=== PATIENT | female | born 1935 ===

== ENCOUNTER 2017-08-20 16:03 | Observation (INO) | payer MEDICARE, MEDICAID ==
[2017-08-20 16:04] VITALS: BMI 27.1
[2017-08-20] MEDS ORDERED: Sodium Chloride 0.9% 1,000 ML IV STA (17:00)
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
--- NOTE | 2017-08-20 17:21 | RAD ---
HISTORY: Cough COMPARISON: Comparison chest 08/26/2015. TECHNIQUE: Chest PA and lateral FINDINGS: Left IJ MediPort with tip in the brachiocephalic/SVC junction. Additionally, there are metallic clips again seen in the right axillary region. Clinical correlation with surgical history recommended. LUNGS: Patchy bilateral mid to lower lobe infiltrate changes with what may represent some concomitant atelectasis both lung bases. . Questionable minor fibrosis/scarring left lung apex. PLEURA: No apparent pneumothorax. Posterior sulci are poorly delineated which could be due to atelectasis CARDIOVASCULAR: Normal. OSSEOUS STRUCTURES: Minor multilevel degenerative spondylosis of the thoracic spine VISUALIZED UPPER ABDOMEN: Normal. OTHER FINDINGS: None. IMPRESSION: Patchy bilateral mid to lower lobe infiltrate changes with what may represent some concomitant atelectasis both lung bases. . Questionable minor fibrosis/scarring left lung apex. Consider followup CT scan chest for further evaluation.
[2017-08-20 17:38] LABS: BASO # 0.1 K/uL (0.0-0.2); BASO % 0.6 % (0.0-2.0); EOS % 0.1 % (0.0-4.0); HEMOGLOBIN 13.9 g/dL (12.0-16.0); LYMPH # 0.6 K/uL (1.0-4.3); LYMPH % 3.9 % (20.0-40.0); MEAN CELL VOLUME 86.6 fl (81.0-99.0); MEAN CORPUSCULAR HEMOGLOBIN 28.1 pg (27.0-31.0); MEAN CORPUSCULAR HGB CONC 32.4 g/dL (33.0-37.0); MEAN PLATELET VOLUME 8.1 fl (7.2-11.7); MONO # 0.7 K/uL (0.0-0.8); MONO % 4.3 % (0.0-10.0); NEUT # 14.5 K/uL (1.8-7.0); NEUT % 91.1 % (50.0-75.0); NRBC % 0.1 % (0.0-0.0); PLATELET COUNT 245 K/uL (130-400); RBC 4.96 Mil/uL (3.80-5.20); RED CELL DISTRIBUTION WIDTH 18.8 % (11.5-14.5); WHITE BLOOD COUNT 15.9 K/uL (4.8-10.8)
[2017-08-20 17:42] LABS: ALB/GLOB RATIO 1.2 (1.0-2.1); ALBUMIN 4.1 g/dL (3.5-5.0); ALT/SGPT 31 U/L (9-52); AST/SGOT 53 U/L (14-36); BLOOD UREA NITROGEN 12 mg/dl (7-17); CALCIUM 10.1 mg/dL (8.4-10.2); GFR AFRICAN-AMERICAN > 60; GFR NON-AFRICAN AMERICAN > 60; LIPASE 40 U/L (23-300)
[2017-08-20 18:08] LABS: INR 1.1 (0.9-1.2); PARTIAL THROMBOPLASTIN TIME 31.5 Seconds (25.6-37.1); PROTHROMBIN TIME 12.1 Seconds (9.8-13.1)
[2017-08-20] MEDS ORDERED: Iohexol 300 100 ML IJ ONE (18:13)
[2017-08-20] MEDS ORDERED: Sodium Chloride 0.9% 50 ML IV ONE (18:13)
[2017-08-20 18:56] LABS: LYMPHOCYTE 6 % (20-50); MONOCYTE 3 % (0-10); NEUTROPHIL 89 % (42-75); REACTIVE LYMPHOCYTES 2 % (0-0); TOTAL CELLS COUNTED 100
[2017-08-20 19:00] LABS: PLATELET ESTIMATE NORMAL (NORMAL)
[2017-08-20 19:01] LABS: ANISOCYTOSIS SLIGHT
[2017-08-20 19:05] LABS: OVALOCYTES SLIGHT
[2017-08-20 19:06] LABS: SCHISTOCYTES SLIGHT
--- NOTE | 2017-08-20 19:52 | CT ---
EXAM: CT Abdomen and Pelvis With Intravenous Contrast EXAM DATE/TIME: 08/20/2017 4:59 PM\par CLINICAL HISTORY: 81 years old, female; Pain; Abdominal pain; Generalized; Prior surgery; Surgery date: 6+ months; Surgery type: Gb removed. Append. Removed; Patient HX: Ca. Breast in 2009 with mets to lung, spine; Additional info: Gen abd pain, constipation. Sent phy. Doc. TECHNIQUE: Axial computed tomography images of the abdomen and pelvis with intravenous contrast. All CT scans at this facility use one or more dose reduction techniques, viz.: automated exposure control; ma/kV adjustment per patient size (including targeted exams where dose is matched to indication; i.e. head); or iterative reconstruction technique. Coronal and sagittal reformatted images were created and reviewed. CONTRAST: 90 mL of [id number] administered intravenously. COMPARISON: There are no prior studies for comparison. FINDINGS: Lower thorax: There is a right breast prosthesis Heart size is at the upper limits of normal. There is no pericardial effusion. There is a hiatal hernia. The there is a small to moderate right effusion. There is no left effusion. There are multiple bilateral pulmonary nodules. Medial opacity at the left base suggest nodules in infiltrate. There is a hiatal hernia. ABDOMEN: Liver: There are calcifications in the left lobe of the liver. There are multiple low attenuation lesion suspicious for metastasis greatest in the right lobe of the liver. Gallbladder and bile ducts: Gallbladder is absent. Common duct is dilated 1.7 cm in maximal diameter. There is intrahepatic biliary ductal dilatation Pancreas: Pancreas is mildly atrophic. Pancreatic duct is dilated. There are small coarse calcifications in the body of the pancreas. Spleen: unremarkable Adrenals: There is nodular thickening of the right adrenal. There is a small left adrenal nodule. Kidneys and ureters: There are right renal cysts. There are low attenuation left renal lesions too small to characterize.There is no pelvocaliectasis or ureterectasis. Stomach and bowel: Stomach is incompletely distended which accentuates the gastric wall. Rotation is normal. Duodenum is mildly distended with fluid and air. Proximal jejunum is mildly distended with fluid and air. There is no small bowel obstruction. There is fluid throughout the small bowel. Terminal ileum is distended with fluid. not There is no pericecal inflammation. Right is mildly dilated with air-fluid levels. Distention decreases distally. There is descending colon wall thickening and inflammation. There is sigmoid diverticulosis. Appendix: Surgically absent PELVIS: Bladder: unremarkable Reproductive: Uterus and left adnexal structures are unremarkable. There is a small calcification in the right adnexa. ABDOMEN and PELVIS: Intraperitoneal space: There is no free air or free fluid. Bones/joints: There are old rib fractures. There are degenerative changes in the osseus structures. Abnormal architecture T12 suggest hemangioma. There is an ill-defined lesion no free suggestive of metastasis. Soft tissues: unremarkable Vasculature: There are vascular calcifications. Lymph nodes: There is shotty para-aortic adenopathy in the upper retroperitoneum. There is peripancreatic adenopathy. IMPRESSION: Right breast prosthesis; multiple bilateral pulmonary nodules suspicious for metastases; hepatic lesions suspicious for metastases; cholecystectomy; dilated intra-and extrahepatic biliary ducts and dilated pancreatic duct, lesion at the level of the ampulla cannot be excluded; pancreatic atrophy with coarse calcifications; descending colon colitis, ileus, no obstruction; adenopathy Additional nonemergent findings as described above.
--- NOTE | 2017-08-20 20:27 | CT ---
EXAM: CT Chest Without Intravenous Contrast EXAM DATE/TIME: 08/20/2017 6:33 PM CLINICAL HISTORY: 81 years old, female; Signs and symptoms and abnormal findings; Other: Abnormal cxr; Cough; Symptoms not specified; Prior surgery; Surgery date: 6+ months; Surgery type: Right breast ca. ; Patient HX: Rt breast ca. With mets TECHNIQUE: Axial computed tomography images of the chest without intravenous contrast. All CT scans at this facility use one or more dose reduction techniques, viz.: automated exposure control; ma/kV adjustment per patient size (including targeted exams where dose is matched to indication; i.e. head); or iterative reconstruction technique. Coronal and sagittal reformatted images were created and reviewed. COMPARISON: CR - CHEST PORTABLE 2015-08-26 12:59 FINDINGS: Lungs and pleural spaces: Trachea and main bronchi are patent. There are multiple bilateral pulmonary nodules/masses too numerous to count. There is a small moderate right effusion. There is no left effusion. There is mild diffuse increase in interstitial markings greatest in the lower lobes right greater than left. Heart and vasculature: The heart is mildly enlarged. There is fluid in pericardial recesses. There are coronary artery calcifications.Aorta and main pulmonary artery are normal in caliber.There are vascular calcifications. Mediastinum: Esophagus is unremarkable. There is a hiatal hernia. There is mediastinal and hilar adenopathy. There is an enlarged left pericardial node. Thyroid: Thyroid is heterogeneous with nodules Bones/joints: There are multiple old rib fractures of the varying ages. There is a lytic lesion in the sternum. There is expansile blastic lesion in the left C7 lamina.There are degenerative changes in the osseus structures. There are lesion suggesting hemangiomas T6 and T12. Soft tissues: There are multiple clips in the right axilla. There is a right breast prosthesis. Upper abdomen: There are poorly defined lesions in the liver. Gallbladder is absent. There is intra-and extra attic biliary ductal dilatation. Pancreas is atrophic with dilated pancreatic duct. There are adrenal nodules. There is adenopathy in the upper abdomen and upper retroperitoneum. Tubes, lines and devices: There is a Port-A-Cath in the left chest wall. Catheter tip is in the low superior vena cava. IMPRESSION: Right breast prosthesis and clips in the right axilla consistent with history of breast cancer; multiple bilateral pulmonary nodules/masses too numerous to count consistent with metastatic disease; small right effusion; bony metastatic disease; dilated biliary and pancreatic ducts suggesting ampullary lesion/dysfunction; metastatic disease in liver Additional nonemergent findings as described above.
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
[2017-08-20 23:04] LABS: SQUAMOUS EPITHIAL < 1 /hpf (0-5); URINE BACTERIA RARE (<OCC); URINE BILIRUBIN NEGATIVE (NEGATIVE); URINE BLOOD NEGATIVE (NEGATIVE); URINE CLARITY CLEAR (Clear); URINE COLOR AMBER (YELLOW); URINE GLUCOSE (UA) NEG (Normal); URINE LEUKOCYTE ESTERASE TRACE Leu/uL (Negative); URINE NITRATE NEGATIVE (NEGATIVE); URINE PROTEIN 30 mg/dL (NEGATIVE)
[2017-08-20] MEDS ORDERED: Oxycodone/Acetaminophen 5/325 mg Tab PO PRN ×2 (23:45→23:46)
[2017-08-20] MEDS ORDERED: Ergocalciferol 50,000 Intl Units Cap PO SCH (23:45)
[2017-08-20] MEDS ORDERED: Sodium Chloride 0.9% 1,000 ML IV SCH (23:45)
[2017-08-21] MEDS ORDERED: Promethazine/Cod 6.25mg-10mg/5ml Syr UD PO PRN ×2 (00:25→00:30)
[2017-08-21] MEDS ORDERED: Ciprofloxacin 400mg/200ml D5W 400 MG/200 ML BAG IVPB SCH (04:30)
[2017-08-21] MEDS: metroNIDAZOLE 500mg/100ml NS 50 ML IVPB SCH ×2 (04:39→12:24)
[2017-08-21] MEDS ORDERED: Dextrose 50% SYRINGE Inj (50 ml) ONE (05:14)
[2017-08-21] MEDS ORDERED: Dextrose 50% SYRINGE Inj (50 ml) IVP ONE (05:15)
[2017-08-21] MEDS: Insulin Regular 100 units/ml SC SCH ×3 (06:32→16:32)
[2017-08-21 06:33] LABS: BASO % 0.4 % (0.0-2.0); EOS # 0.1 K/uL (0.0-0.7); EOS % 1.5 % (0.0-4.0); LYMPH # 0.8 K/uL (1.0-4.3); LYMPH % 11.3 % (20.0-40.0); MEAN CELL VOLUME 87.2 fl (81.0-99.0); MEAN CORPUSCULAR HEMOGLOBIN 28.2 pg (27.0-31.0); MEAN CORPUSCULAR HGB CONC 32.3 g/dL (33.0-37.0); MEAN PLATELET VOLUME 8.4 fl (7.2-11.7); MONO # 0.4 K/uL (0.0-0.8); MONO % 6.4 % (0.0-10.0); NEUT # 5.7 K/uL (1.8-7.0); NEUT % 80.4 % (50.0-75.0); NRBC % 0.1 % (0.0-0.0); RBC 3.91 Mil/uL (3.80-5.20); RED CELL DISTRIBUTION WIDTH 18.2 % (11.5-14.5); WHITE BLOOD COUNT 7.1 K/uL (4.8-10.8)
[2017-08-21 06:40] LABS: ALBUMIN 2.9 g/dL (3.5-5.0); ALT/SGPT 31 U/L (9-52); AST/SGOT 39 U/L (14-36); BLOOD UREA NITROGEN 9 mg/dl (7-17); CALCIUM 8.5 mg/dL (8.4-10.2); GFR AFRICAN-AMERICAN > 60; GFR NON-AFRICAN AMERICAN > 60
--- NOTE | 2017-08-21 08:47 | CARD ---
APPROVED REPORT EKG Measurement Heart [id number] <Conclusion> Sinus tachycardia T wave abnormality, consider inferior ischemia Abnormal ECG
[2017-08-21] MEDS ORDERED: Enoxaparin 40 mg Syringe SC SCH (09:00)
[2017-08-21] MEDS: Potassium CL 10 MEQ/50 ML 50 ML IVPB SCH ×2 (11:03→11:04)
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
[2017-08-21 13:52] LABS: BLOOD UREA NITROGEN 8 mg/dl (7-17); CALCIUM 8.9 mg/dL (8.4-10.2); GFR AFRICAN-AMERICAN > 60; GFR NON-AFRICAN AMERICAN > 60
--- NOTE | 2017-08-21 15:13 | CP.PCM.DIS ---
Provider - Provider Date of Admission: 08/20/17 20:59 Attending physician: Franki Norton Primary care physician: Dr Liang Consults: Oncology : Dr Sánchez GI : Dr Lopez Time Spent in preparation of Discharge (in minutes): 40 Diagnosis - Discharge Diagnosis (1) Abdominal pain Status: Acute (2) Colitis Status: Acute (3) Ileus Status: Acute (4) Metastatic breast cancer Status: Chronic Hospital Course - Lab Results Lab Results: Most Recent Lab Values WBC 7.1 K/uL (4.8-10.8) D 08/21/17 05:25 RBC 3.91 Mil/uL (3.80-5.20) 08/21/17 05:25 Hgb 11.0 g/dL (12.0-16.0) L D 08/21/17 05:25 Hct 34.1 % (34.0-47.0) 08/21/17 05:25 MCV 87.2 fl (81.0-99.0) 08/21/17 05:25 MCH 28.2 pg (27.0-31.0) 08/21/17 05:25 MCHC 32.3 g/dL (33.0-37.0) L 08/21/17 05:25 RDW 18.2 % (11.5-14.5) H 08/21/17 05:25 Plt Count 172 K/uL (130-400) 08/21/17 05:25 MPV 8.4 fl (7.2-11.7) 08/21/17 05:25 Neut % (Auto) 80.4 % (50.0-75.0) H 08/21/17 05:25 Lymph % (Auto) 11.3 % (20.0-40.0) L 08/21/17 05:25 [place] % (Auto) 6.4 % (0.0-10.0) 08/21/17 05:25 Eos % (Auto) 1.5 % (0.0-4.0) 08/21/17 05:25 Baso % (Auto) 0.4 % (0.0-2.0) 08/21/17 05:25 Neut # (Auto) 5.7 K/uL (1.8-7.0) 08/21/17 05:25 Lymph # (Auto) 0.8 K/uL (1.0-4.3) L 08/21/17 05:25 [place] # (Auto) 0.4 K/uL (0.0-0.8) 08/21/17 05:25 Eos # (Auto) 0.1 K/uL (0.0-0.7) 08/21/17 05:25 Baso # (Auto) 0.0 K/uL (0.0-0.2) 08/21/17 05:25 Neutrophils % (Manual) 89 % (42-75) H 08/20/17 17:28 Lymphocytes % (Manual) 6 % (20-50) L 08/20/17 17:28 Reactive Lymphs % 2 % (0-0) H 08/20/17 17:28 Monocytes % (Manual) 3 % (0-10) 08/20/17 17:28 Platelet Estimate Normal (NORMAL) 08/20/17 17:28 Anisocytosis (manual) Slight 08/20/17 17:28 Ovalocytes Slight 08/20/17 17:28 Schistocytes Slight 08/20/17 17:28 PT 12.1 Seconds (9.8-13.1) 08/20/17 17:28 INR 1.1 (0.9-1.2) 08/20/17 17:28 APTT 31.5 Seconds (25.6-37.1) 08/20/17 17:28 Sodium 139 mmol/l (132-148) 08/21/17 12:10 Potassium 4.5 MMOL/L (3.6-5.0) 08/21/17 12:10 Chloride 105 mmol/L (98-107) 08/21/17 12:10 Carbon Dioxide 31 mmol/L (22-30) H 08/21/17 12:10 Anion Gap 8 (10-20) L 08/21/17 12:10 BUN 8 mg/dl (7-17) 08/21/17 12:10 Creatinine 0.5 mg/dl (0.7-1.2) L 08/21/17 12:10 Est GFR ( Amer) > 60 08/21/17 12:10 Est GFR (Non-Af Amer) > 60 08/21/17 12:10 POC Glucose (mg/dL) 70 mg/dL (65-110) 08/21/17 11:05 Random Glucose 88 mg/dL (65-105) 08/21/17 12:10 Calcium 8.9 mg/dL (8.4-10.2) 08/21/17 12:10 Total Bilirubin 0.6 mg/dl (0.2-1.3) 08/21/17 05:25 AST 39 U/L (14-36) H D 08/21/17 05:25 ALT 31 U/L (9-52) 08/21/17 05:25 Alkaline Phosphatase 192 U/L (38-126) H D 08/21/17 05:25 Total Protein 5.6 G/DL (6.3-8.2) L 08/21/17 05:25 Albumin 2.9 g/dL (3.5-5.0) L D 08/21/17 05:25 Globulin 2.8 gm/dL (2.2-3.9) 08/21/17 05:25 Albumin/Globulin Ratio 1.0 (1.0-2.1) 08/21/17 05:25 Lipase 40 U/L (23-300) 08/20/17 17:28 Urine Color Karen (YELLOW) 08/20/17 22:46 Urine Clarity Clear (Clear) 08/20/17 22:46 Urine pH 7.0 (5.0-8.0) 08/20/17 22:46 Ur Specific [place] > 1.060 (1.003-1.030) H 08/20/17 22:46 Urine Protein 30 mg/dL (NEGATIVE) 08/20/17 22:46 Urine Glucose (UA) Neg mg/dL (Normal) 08/20/17 22:46 Urine Ketones Negative mg/dL (NEGATIVE) 08/20/17 22:46 Urine Blood Negative (NEGATIVE) 08/20/17 22:46 Urine Nitrate Negative (NEGATIVE) 08/20/17 22:46 Urine Bilirubin Negative (NEGATIVE) 08/20/17 22:46 Urine Urobilinogen 4.0 mg/dL (0.2-1.0) H 08/20/17 22:46 Ur Leukocyte Esterase Trace [place]ary/uL (Negative) 08/20/17 22:46 Urine RBC (Auto) 3 /hpf (0-3) 08/20/17 22:46 Urine Microscopic WBC 7 /hpf (0-5) H 08/20/17 22:46 Ur Squamous Epith Cells < 1 /hpf (0-5) 08/20/17 22:46 Urine Bacteria Rare (<OCC) 08/20/17 22:46 Influenza Typ A,B (EIA) Negative for flu a/b (NEGATIVE) 08/20/17 17:28 - Hospital Course Hospital Course: 81 years olf female with Hx of HTN, DM, Gastritis and Stage IV Breast cancer Dx in 2009 finishing her last round of Chemotherapy two weeks ago, came with abdominal pain with constipation for 9 days, nausea and coughing for 2 weeks. She denies fever , no chills , no urinary symptoms. #. Abdominal Pain most prob sec to Constipation and Ileus - abd pain resolved after pt had large BM -received laxative - tolerating PO diet, no abd pain , no N/V at present #. Descending Colon colitis and Ileus - Consulted GI Dr Lopez - received IV Cipro and Flagyl- will change to PO - since pt had leukocytosis and some CT findings of Colitis - will cont her on short term PO Cipro and Flagyl x 3 more days. #. Stage IV Metastatic Breast Cancer - Consulted Dr Sánchez Oncology- pt has an appt with her Oncology this week , advised pt to keep her appt - ongoing Chemotherapy - Pain management - Palliative consult #. Stress ulcer Prophylaxis with Pantoprazole #. DVT prophylaxis with lovenox #. Code Status: Full Discharge Exam - Head Exam Head Exam: ATRAUMATIC, NORMAL INSPECTION - Eye Exam Eye Exam: EOMI, Normal appearance Pupil Exam: NORMAL ACCOMODATION - ENT Exam ENT Exam: Mucous Membranes Moist, Normal External Ear Exam - Neck Exam Neck exam: Full Rom - Respiratory Exam Respiratory Exam: NORMAL BREATHING PATTERN. absent: Respiratory Distress - Cardiovascular Exam Cardiovascular Exam: REGULAR RHYTHM, +S1, +S2 - GI/Abdominal Exam GI & Abdominal Exam: Normal Bowel Sounds, Soft. absent: Tenderness - Extremities Exam Extremities exam: full ROM, normal capillary refill, pedal pulses present - Back Exam Back exam: absent: CVA tenderness (L), CVA tenderness (R), vertebral tenderness - Neurological Exam Neurological exam: Alert, CN II-XII Intact, Oriented x3, Reflexes Normal - Psychiatric Exam Psychiatric exam: Normal Affect, Normal Mood - Skin Skin Exam: Dry, Normal Color, Warm Discharge Plan - Discharge Medications Prescriptions: Ciprofloxacin HCl [Cipro] 250 mg PO BID #6 tablet Docusate [Colace] 100 mg PO BID #60 cap Metronidazole [Flagyl] 500 mg PO TID #12 tablet Senna [Senokot Syrup] 8.8 mg PO HS #30 dose - Follow Up Plan Condition: IMPROVED Disposition: HOME/ ROUTINE Instructions: Constipation (DC), Acute Abdominal Pain (DC) Additional Instructions: keep appt with Oncology - pt has an appt this week ff up with Dr Liang in 1-2 wks Referrals: Dutch Liang [Family Provider] - Rossy Monreal MD [Medical Doctor] -
[2017-08-21 15:56] VITALS: BP 110/58; PULSE 78; RESP 17; TEMP 98.2
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
[2017-08-22 15:14] VITALS: O2SAT 90
== END 2017-08-21 18:00 | disposition home health service (06) ==
LOC: H.ER 16:03 → INTOOBSV 20:59 → H.ERHOLD 20:59 → H.MEDSURG1 23:15
PROVIDERS: ADMIT Internal Medicine; ATTEND Internal Medicine
DX: K56.7 Ileus, unspecified (principal); K86.89 Other specified diseases of pancreas; C78.00 Secondary malignant neoplasm of unspecified lung; C78.7 Secondary malignant neoplasm of liver and intrahepatic bile duct; C79.51 Secondary malignant neoplasm of bone; K59.09 Other constipation; E11.9 Type 2 diabetes mellitus without complications; I10 Essential (primary) hypertension; K52.9 Noninfective gastroenteritis and colitis, unspecified; M81.0 Age-related osteoporosis without current pathological fracture; Z85.3 Personal history of malignant neoplasm of breast; Z90.11 Acquired absence of right breast and nipple; Z92.21 Personal history of antineoplastic chemotherapy; Z87.891 Personal history of nicotine dependence; Z79.4 Long term (current) use of insulin; Z88.0 Allergy status to penicillin
CPT/HCPCS: 36415; 71046; 71250; 74177; 80053; 81003; 82948; 83690; 85025; 85610; 85730; 87040; 87804; 93005; 99284; C9113; G0378; J0744; J1650; J3480; J7040; Q9967